=== PATIENT | female | born 1965 | race Caucasian/White ===

== ENCOUNTER 2020-05-28 00:20 | Observation (INO) ==
[2020-05-28 02:16] LABS: Basophils # 0.1 K/mcL (0.0-0.2); Basophils % 0.4 %; Eosinophils # 0.1 K/mcL (0.0-0.6); Eosinophils % 0.4 %; Hematocrit 41.4 % (35.3-44.9); Hemoglobin 14.3 g/dL (11.5-15.4); Immature Granulocytes % 0.3 % (0-4); Lymphocytes # 2.1 K/mcL (0.6-4.6); Lymphocytes % 15.1 %; Mean Corpuscular HGB Conc 34.5 g/dL (31.6-35.5); Mean Corpuscular Volume 89.6 fL (83.0-100.0); Mean Platelet Volume 10.2 fL (9.4-12.4); Monocytes # 0.7 K/mcL (0.0-1.3); Monocytes % 4.6 %; Neutrophils # 11.2 K/mcL (1.6-8.9); Platelet Count 282 K/mcL (140-400); Red Blood Count 4.62 M/mcL (3.82-4.97); Red Cell Distribution Width 11.8 % (11.5-14.5); Segmented Neutrophils % 79.2 %; White Blood Count 14.1 K/mcL (4.3-11.1)
[2020-05-28 02:38] LABS: BUN/Creatinine Ratio 8 (6-26); Blood Urea Nitrogen 7 mg/dL (6-20); Calcium 9.3 mg/dL (8.6-10.3); Carbon Dioxide 25 mEq/L (23-29); Chloride 108 mEq/L (98-107); Glucose 109 mg/dL (70-105); Osmolality,Calculated 293 (280-300); Potassium 3.4 mEq/L (3.5-5.1); Sodium 142 mEq/L (136-145); Troponin I < 0.03 ng/mL (< 0.04); eGFR For African Americans > 60 (> 60); eGFR For Non-African Americans > 60 (> 60)
[2020-05-28] MEDS ORDERED: Aspirin 81 MG TAB.CHEW PO ONE (03:15)
[2020-05-28] MEDS ORDERED: Naloxone 0.4 MG/ML INJ IVP PRN (04:08)
[2020-05-28] MEDS ORDERED: Ondansetron 4 MG/2 ML VIAL IVP PRN (04:08)
[2020-05-28] MEDS ORDERED: Perflutren Lipid Microsphere 1.3 ML in 0.9 % Sodium Chloride 8.7 ML IVP PRN (04:16)
[2020-05-28] MEDS ORDERED: Nicotine 14 MG PATCH.TD24 TD PRN (05:07)
[2020-05-28] MEDS ORDERED: Regadenoson 0.4 MG/5 ML SYRINGE IVP ONE (06:33)
[2020-05-28 12:54] LABS: Troponin I < 0.03 ng/mL (< 0.04)
[2020-05-28 14:56] LABS: Thyroid Stimulating Hormone 1.538 mcIU/mL (0.340-5.600)
[2020-05-28 15:03] VITALS: BP 108/62
== END 2020-05-28 17:28 | disposition home or self-care (01) ==
LOC: 3ANU 00:20 → EMEROOARM 00:20 → SUATTDRO 03:51 → 3ANU 05:00
PROVIDERS: ADMIT Internal Medicine; ATTEND Student in an Organized Health Care Education/Training Program

== ENCOUNTER 2020-08-21 21:22 | Observation (INO) ==
[2020-08-21] MEDS ORDERED: 0.9 % Sodium Chloride 1,000 ML IVC ONE (21:32)
[2020-08-21 21:49] LABS: Basophils # 0.1 K/mcL (0.0-0.2); Eosinophils # 0.1 K/mcL (0.0-0.6); Hematocrit 44.4 % (35.3-44.9); Immature Granulocytes % 0.2 % (0-4); Lymphocytes # 4.2 K/mcL (0.6-4.6); Lymphocytes % 39.4 %; Mean Corpuscular HGB Conc 33.8 g/dL (31.6-35.5); Mean Corpuscular Hemoglobin 30.2 pg (28.0-33.3); Mean Corpuscular Volume 89.5 fL (83.0-100.0); Mean Platelet Volume 10.1 fL (9.4-12.4); Monocytes # 0.8 K/mcL (0.0-1.3); Monocytes % 7.3 %; Neutrophils # 5.4 K/mcL (1.6-8.9); Platelet Count 292 K/mcL (140-400); Red Blood Count 4.96 M/mcL (3.82-4.97); Red Cell Distribution Width 11.8 % (11.5-14.5); Segmented Neutrophils % 51.1 %; White Blood Count 10.6 K/mcL (4.3-11.1)
[2020-08-21 22:19] LABS: Alanine Aminotransferase 36 Units/L (7-52); Albumin 4.4 g/dL (3.5-5.7); Albumin/Globulin Ratio 1.6 (1.1-2.2); Alkaline Phosphatase 61 Units/L (34-104); Aspartate Amino Transferase 34 Units/L (13-39); BUN/Creatinine Ratio 5 (6-26); Bilirubin,Indirect 0.4 mg/dL (0.0-1.0); Bilirubin,Total 0.4 mg/dL (0.3-1.0); Blood Urea Nitrogen 5 mg/dL (6-20); Calcium 9.2 mg/dL (8.6-10.3); Carbon Dioxide 25 mEq/L (23-29); Chloride 107 mEq/L (98-107); Globulin 2.7 g/dL (2.4-3.5); Glucose 108 mg/dL (70-105); Osmolality,Calculated 288 (280-300); Potassium 3.7 mEq/L (3.5-5.1); Sodium 140 mEq/L (136-145); Total Protein 7.1 g/dL (6.4-8.9); Troponin I < 0.03 ng/mL (< 0.04); eGFR For African Americans > 60 (> 60); eGFR For Non-African Americans > 60 (> 60)
[2020-08-21 22:27] LABS: Bilirubin,Urine Negative (Negative); Blood,Urine Small (Negative); Clarity,Urine Clear (Clear); Color,Urine Colorless (Yellow); Glucose,Urine (UA) Normal (Normal); Ketones,Urine Negative (Negative); Leukocyte Esterase,Urine Negative (Negative); Nitrite,Urine Negative (Negative); PH,Urine 6.5 pH Units (5.0-8.0); Protein,Urine Negative (Neg-Trace); RBC,Urine 0-3 per hpf (0-3); Specific Gravity,Urine 1.007 (1.010-1.025); Squamous Epithelial Cell,Urine Few per hpf (None-Few); Urobilinogen,Urine Normal (Normal); WBC,Urine 0-3 per hpf (0-3)
[2020-08-21 22:35] LABS: Prothrombin Time 11.4 Seconds (9.4-12.1)
[2020-08-21 22:38] LABS: Activated Partial Thrombo Time 27.3 Seconds (26.0-36.0)
[2020-08-21] MEDS ORDERED: Aspirin 81 MG TAB.CHEW PO ONE (23:49)
[2020-08-22] MEDS ORDERED: Nicotine 14 MG PATCH.TD24 TD PRN (01:02)
[2020-08-22] MEDS ORDERED: Albuterol 2.5 MG/3 ML NEBULIZER IH PRN (01:03)
[2020-08-22] MEDS ORDERED: methylPREDNISolone 125 MG/2 ML VIAL IVP ONE (01:03)
[2020-08-22] MEDS ORDERED: Perflutren Lipid Microsphere 1.3 ML in 0.9 % Sodium Chloride 8.7 ML IVP PRN (01:04)
[2020-08-22 02:48] LABS: INR 1.1; Prothrombin Time 12.3 Seconds (9.4-12.1)
[2020-08-22 02:56] LABS: Alanine Aminotransferase 29 Units/L (7-52); Albumin 3.8 g/dL (3.5-5.7); Albumin/Globulin Ratio 1.7 (1.1-2.2); Alkaline Phosphatase 52 Units/L (34-104); Aspartate Amino Transferase 25 Units/L (13-39); BUN/Creatinine Ratio 11 (6-26); Bilirubin,Total 0.3 mg/dL (0.3-1.0); Blood Urea Nitrogen 8 mg/dL (6-20); Calcium 8.5 mg/dL (8.6-10.3); Carbon Dioxide 22 mEq/L (23-29); Chloride 113 mEq/L (98-107); Chol/HDL Ratio 3.7 (0-4.9); Cholesterol 88 mg/dL (< 200); Globulin 2.3 g/dL (2.4-3.5); Glucose 104 mg/dL (70-105); HDL Cholesterol 24 mg/dL (40-59); LDL Cholesterol,Calculated 27 mg/dL (< 100); Osmolality,Calculated 289 (280-300); Potassium 3.9 mEq/L (3.5-5.1); Sodium 140 mEq/L (136-145); Total Protein 6.1 g/dL (6.4-8.9); Triglycerides 186 mg/dL (< 150); Troponin I < 0.03 ng/mL (< 0.04); eGFR For African Americans > 60 (> 60); eGFR For Non-African Americans > 60 (> 60)
[2020-08-22 03:29] LABS: Estimated Average Glucose 114 mg/dl; Hemoglobin A1C 5.6 %
[2020-08-22] MEDS: Albuterol 2.5 MG/3 ML NEBULIZER IH SCH ×6 (04:24→23:27)
[2020-08-22] MEDS: *HR* Heparin 5,000 UNIT/ML VIAL SQ SCH ×2 (09:38→17:04)
[2020-08-22] MEDS: predniSONE 20 MG TABLET PO SCH (09:38)
[2020-08-22] MEDS: Aspirin 81 MG TAB.CHEW PO SCH (09:38)
[2020-08-22] MEDS ORDERED: hydrOXYzine pamoate 25 MG CAPSULE PO PRN (12:39)
[2020-08-23] MEDS: Albuterol 2.5 MG/3 ML NEBULIZER IH SCH ×4 (03:10→15:42)
[2020-08-23] MEDS: Aspirin 81 MG TAB.CHEW PO SCH (09:33)
[2020-08-23] MEDS: predniSONE 20 MG TABLET PO SCH (09:33)
[2020-08-23] MEDS ORDERED: Acetaminophen 325 MG TABLET PO PRN (10:34)
[2020-08-23] MEDS ORDERED: Fluticasone Propionate Nasal 50 MCG/SPRAY BOTTLE NS SCH (11:00)
[2020-08-23] MEDS ORDERED: Saline Nasal Spray 44 ML BOTTLE NS PRN (11:16)
[2020-08-23 15:25] VITALS: BP 112/75
[2020-08-24] MEDS ORDERED: Aspirin 81 MG TAB.CHEW PO SCH (09:00)
== END 2020-08-23 17:46 | disposition home or self-care (01) ==
LOC: EMEROOARM 21:22 → 2ANU 21:22 → SUATTDRO 23:55 → 2ANU 08-22 00:28
PROVIDERS: ADMIT Family Medicine; ATTEND Internal Medicine